=== PATIENT | male | born 1980 | race Caucasian/White ===

== ENCOUNTER 2023-02-13 13:17 | Outpatient (CLI) | payer OTHER, SELFPAY ==
--- NOTE | ~2023-02-13 | MR_ITS ---
EXAMINATION: MR knee RT wo con DATE: 02/13/2023 14:10 INDICATION: Medial collateral ligament sprain at the right knee post injury 2-3 weeks prior TECHNIQUE: Magnetic resonance imaging (MRI) of the right knee was performed without intravenous contr ast. Sequences included coronal PD-weighted FSE, coronal PD-weighted FS FSE, sagittal T2-weighted FS E, sagittal PD-weighted FS FSE and axial PD weighted fat saturated FSE. COMPARISON: None. FINDINGS: Medial compartment: Medial meniscus is normal. Articular cartilage is normal. Lateral compartment: Lateral meniscus is normal. Articular cartilage is normal. Patellofemoral compartment: Deep chondral ulceration with mild underlying cortical irregularity and subarticular edema-like signa l changes at the lateral trochlea. Chondral surface irregularity with shallow fissuring at the latera l patellar facet. Ligaments and tendons: Anterior and posterior cruciate ligaments are normal. Partial tear involving the anterior third of th e proximal medial collateral ligament with small amount of surrounding soft tissue edema. The fibular collateral ligament complex is normal. Mild quadriceps tendinopathy without tear. The patellar tendo n is normal.. The visualized medial and lateral hamstring tendons as well as the iliotibial band are normal. Fluid: Physiologic amount of fluid in the joint space. No loose osteochondral bodies identified. Osseous/other: Bone alignment is normal. No fracture or pathologic marrow replacing process. IMPRESSION: 1. Moderate grade sprain/partial tear involving the anterior third of the proximal medial collateral ligament. 2. 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 3. Mild distal quadriceps tendinopathy without tear. Reviewed, dictated and finalized at location L. IMPRESSION: 1. Moderate grade sprain/partial tear involving the anterior third of the proxi mal medial collateral ligament. 2. Mild patellofemoral osteoarthritis with high-grade chondral malacia the late ral trochlea and moderate grade chondral malacia the lateral patellar facet. 3. Mild distal quadriceps tendinopathy without tear.
== END 2023-02-13 13:18 | disposition home or self-care (01) ==
PROVIDERS: Visit Provider Orthopaedic Surgery
DX: S83.411A Sprain of medial collateral ligament of right knee, initial encounter (principal); X58.XXXA Exposure to other specified factors, initial encounter; M17.11 Unilateral primary osteoarthritis, right knee
CPT/HCPCS: 73721